=== PATIENT | female | born 1985 | race Caucasian/White ===

== ENCOUNTER → 2022-04-25 | Outpatient (CLI) | payer OTHER, SELFPAY ==
[2022-04-25 18:22] LABS: Vitamin D,25 Hydroxy 29.5 ng/mL
[2022-04-25 18:31] LABS: Anion Gap 7 (5-15); BUN 19 mg/dL (7-18); BUN/Creat Ratio 18.8 RATIO (10-20); Calcium,Total 8.7 mg/dL (8.5-10.1); Chloride 104 mmol/L (98-107); Cholesterol 171 mg/dL (200); Creatinine, Serum 1.01 mg/dL (0.55-1.02); EST Glomerular Filtration Rate 66 mL/min (>60); Est Glom Filt Rate - Afr Amer 80 mL/min (>60); Glucose 85 mg/dL (74-106); High Density Lipoprotein 44 mg/dL; Sodium Level 137 mmol/L (136-145); Thyroid Stim Hormone (TSH) 3.84 uIU/mL (0.358-3.74); Triglycerides 93 mg/dL; Very Low Density Lipoprotein 19 mg/dL (5-40)
== END | disposition home or self-care (01) ==
LOC: MFPLAB 16:14
PROVIDERS: Visit Provider Family Medicine
DX: Z00.00 Encounter for general adult medical examination without abnormal findings (principal); E66.9 Obesity, unspecified
CPT/HCPCS: 36415; 80048; 80061; 82306; 84443

== ENCOUNTER → 2022-12-26 | Outpatient (CLI) | payer OTHER, SELFPAY ==
[2022-12-26 18:22] LABS: Free T3 2.4 pg/mL (2.18-3.98); T4 Free Direct 1.02 ng/dL (0.76-1.46); Thyroid Stim Hormone (TSH) 2.33 uIU/mL (0.358-3.74)
[2022-12-28 16:09] LABS: Thyroglobulin Antibody < 1.0 IU/mL (0.0-0.9); Thyroid Peroxidase AB 14 IU/mL (0-34)
== END | disposition home or self-care (01) ==
LOC: MFPLAB 15:17
PROVIDERS: Visit Provider Family Medicine
DX: R79.89 Other specified abnormal findings of blood chemistry (principal); E28.2 Polycystic ovarian syndrome
CPT/HCPCS: 36415; 83036; 84439; 84443; 84481; 86376; 86800

== ENCOUNTER → 2023-05-21 | Outpatient (CLI) | payer OTHER, SELFPAY ==
[2023-05-21 11:02] LABS: Anion Gap 7 (5-15); BUN 15 mg/dL (7-18); BUN/Creat Ratio 13.4 RATIO (10-20); Calcium,Total 8.7 mg/dL (8.5-10.1); Chloride 107 mmol/L (98-107); Cholesterol 159 mg/dL (200); Creatinine, Serum 1.12 mg/dL (0.55-1.02); EST Glomerular Filtration Rate 58 mL/min (>60); Est Glom Filt Rate - Afr Amer 70 mL/min (>60); Glucose 93 mg/dL (74-106); High Density Lipoprotein 46 mg/dL; Potassium 3.9 mmol/L (3.5-5.1); Sodium Level 137 mmol/L (136-145); Triglycerides 59 mg/dL; Very Low Density Lipoprotein 12 mg/dL (5-40)
== END | disposition home or self-care (01) ==
LOC: MTLAB 09:09
PROVIDERS: PCP Family Medicine; Referring Provider Nurse Practitioner Family; Visit Provider Nurse Practitioner Family
DX: Z13.1 Encounter for screening for diabetes mellitus (principal); Z13.220 Encounter for screening for lipoid disorders
CPT/HCPCS: 36415; 80048; 80061

== ENCOUNTER → 2023-07-08 | Outpatient (CLI) | payer OTHER, SELFPAY ==
[2023-07-15 13:07] LABS: HPV APTIMA, High Risk Negative (Negative)
== END | disposition home or self-care (01) ==
LOC: LABSPEC 16:15
PROVIDERS: PCP Family Medicine; Referring Provider Nurse Practitioner Women's Health; Visit Provider Nurse Practitioner Women's Health
DX: Z12.4 Encounter for screening for malignant neoplasm of cervix (principal)
CPT/HCPCS: 87624; 88175; G0145

== ENCOUNTER → 2024-03-19 | Outpatient (CLI) | payer OTHER, SELFPAY ==
--- NOTE | 2024-03-19 10:20 | US_ITS ---
STUDY: SUPERFICIAL ULTRASOUND - MASS IN THE MEDIAL RIGHT CLAVICLE. REASON FOR EXAM: Female, 38 years old. TARGET MASS AT MEDIAL RT CLAVICLE TECHNIQUE: A superficial ultrasound was performed with real-time and static burk-scale imaging. COMPARISON: None. FINDINGS: The palpable abnormality corresponds to a 2.1 cm x 1.5 cm x 1.1 cm hypoechoic solid mass with calcifications within it and posterior shadowing. Biopsy recommended. US/Chest IMPRESSION: The palpable abnormality corresponds to a solid hypoechoic mass with calcifications measuring 2.1 cm x 1.5 cm x 1.1 cm. Biopsy recommended. Electronically Signed: Delbert Chaudhari MD at 15:05 EDT ,
== END | disposition home or self-care (01) ==
LOC: US 10:16
PROVIDERS: PCP Family Medicine; Referring Provider Family Medicine; Visit Provider Family Medicine
DX: R22.2 Localized swelling, mass and lump, trunk (principal)
CPT/HCPCS: 76604

== ENCOUNTER → 2024-08-20 | Outpatient (CLI) | payer OTHER, SELFPAY ==
[2024-08-20 12:11] LABS: Absolute Lymphocyte Count 1.52 X10^3/uL (0.83-4.51); Absolute Neutrophil Count 4.2 X10^3/uL (2.0-7.7); Basophil# 0.02 X10^3/uL; Basophil% 0.3 % (0-1); Eosinophil# 0.08 X10^3/uL; Eosinophils% 1.3 % (0-5); Hematocrit 42.1 % (37-47); Hemoglobin 13.3 g/dL (12.0-15.0); Lymphocyte # 1.52 X10^3/ul (0.83-4.51); Lymphocyte % 24.5 % (19-41); Mean Corp Hgb Conc 31.6 g/dL (32-36); Mean Corpuscular Hgb 27.9 pg (27.0-32.0); Mean Corpuscular Volume 88.3 fL (81-99); Mean Platelet Vol. 12.5 fl (6.2-12.0); Monocyte% 6.5 % (0-10); NRBC Flagged by Analyzer 0 % (0-5); Neutrophil # 4.16 X10^3/uL (2.7-7.7); Neutrophil % 67.1 % (47-70); Platelet Count 205 K/mm3 (150-450); RBC Distribution Width CV 12.6 % (11.6-14.6); Red Blood Count 4.77 M/mm3 (4.2-5.4); White Blood Count 6.2 K/mm3 (4.4-11.0)
[2024-08-20 15:34] LABS: Vitamin D,25 Hydroxy 20.4 ng/mL
[2024-08-20 15:51] LABS: AST(SGOT) 13 U/L (15-37); Alanine Aminotransfer ALT/SGPT 17 U/L (13-56); Albumin, Serum 3.8 g/dL (3.2-5.0); Alkaline Phosphatase 69 U/L (45-117); Anion Gap 7 (5-15); BUN 12 mg/dL (7-18); BUN/Creat Ratio 12.1 RATIO (10-20); Calcium,Total 8.9 mg/dL (8.5-10.1); Chloride 110 mmol/L (98-107); Cholesterol 143 mg/dL (200); Creatinine, Serum 0.99 mg/dL (0.55-1.02); EST Glomerular Filtration Rate 67 mL/min (>60); Est Glom Filt Rate - Afr Amer 81 mL/min (>60); Glucose 96 mg/dL (74-106); High Density Lipoprotein 53 mg/dL; Potassium 3.6 mmol/L (3.5-5.1); Protein, Total 7.8 g/dL (6.4-8.2); Sodium Level 140 mmol/L (136-145); Triglycerides 56 mg/dL; Very Low Density Lipoprotein 11 mg/dL (5-40)
== END | disposition home or self-care (01) ==
LOC: MFPLAB 11:18
PROVIDERS: PCP Family Medicine; Referring Provider Family Medicine; Visit Provider Family Medicine
DX: R53.83 Other fatigue (principal); Z13.220 Encounter for screening for lipoid disorders; Z13.1 Encounter for screening for diabetes mellitus
CPT/HCPCS: 36415; 80053; 80061; 82306; 84443; 85025

== ENCOUNTER → 2024-12-28 | Outpatient (CLI) | payer OTHER, SELFPAY ==
--- NOTE | 2024-12-28 12:55 | RAD_ITS ---
PROCEDURE: LUMBAR SPINE 2 OR 3 VIEWS 12/28/2024 REASON FOR EXAM: BACK PAIN TECHNIQUE: 2 view(s) of the lumbar spine COMPARISON: None available FINDINGS: 5 [id number] lumbar vertebral body types identified. No fracture or malalignment. The disc spaces appear within limits. RAD/Lumbar Spine 2 or 3 Views IMPRESSION: Study appears within limits. Reading Location: [id number]
== END | disposition home or self-care (01) ==
LOC: MTRAD 12:54
PROVIDERS: PCP Family Medicine
DX: M54.9 Dorsalgia, unspecified (principal)
CPT/HCPCS: 72100

== ENCOUNTER → 2025-03-08 | Outpatient (CLI) | payer OTHER, SELFPAY ==
--- NOTE | 2025-03-08 13:57 | RAD_ITS ---
EXAM: XR Right Ankle Complete, 3 or More Views CLINICAL INDICATION: ANKLE PAIN TECHNIQUE: Frontal, lateral and oblique views of the right ankle. COMPARISON: No relevant prior studies available. FINDINGS: BONES/JOINTS: See below. SOFT TISSUES: Soft tissue swelling without acute fracture. RAD/Ankle min 3 Views IMPRESSION: 1. Soft tissue swelling without acute fracture. 2. If symptoms persist, further evaluation with CT is recommended. Reading Location: [id number]
== END | disposition home or self-care (01) ==
LOC: MTRAD 13:56
PROVIDERS: PCP Family Medicine
DX: M25.579 Pain in unspecified ankle and joints of unspecified foot (principal)
CPT/HCPCS: 73610